=== PATIENT | male | born 1975 | race Caucasian/White ===

== ENCOUNTER 2018-10-11 09:20 | Emergency (ER) | payer MEDICAID ==
[~2018-10-11] VITALS: Ht 177.8 cm; Wt 86.2 kg
[2018-10-11 09:27] VITALS: BP 138/92
--- NOTE | 2018-10-11 09:28 | NUR ---
BIBA, C/O SEVERE BACK PAIN S/P WORKING AND HX OF LOW BACK INJURY. PT STATES 10/10 PAIN AND SPASM ON LOWER BACK PAIN. HOB UP, BED SIDE RAILS X 1, ON LOW BED POSITION, LOCKED. ER MD MADE AWARE OF PT STATUS.
--- NOTE | 2018-10-11 09:49 | NUR ---
AT BEDSIDE FOR PT EVALUATION
[2018-10-11] MEDS ORDERED: KETOROLAC 30 MG/ML VIAL IM ONE (09:50)
[2018-10-11] MEDS ORDERED: DIAZEPAM 5 MG TAB PO ONE (09:50)
[2018-10-11] MEDS ORDERED: oxyCODONE/APAP 5/325 MG 1 TAB TAB PO ONE (11:10)
--- NOTE | 2018-10-11 12:15 | NUR ---
Patient discharged with v/s stable. Written and verbal after care instructions given and explained. Patient alert, oriented and verbalized understanding of instructions. Ambulatory with steady gait. All questions addressed prior to discharge. ID band removed. Patient advised to follow up with PMD. Rx of VALIUM, NORCO, AND IBUPROFEN given. Patient educated on indication of medication including possible reaction and side effects. Opportunity to ask questions provided and answered.
[2018-10-11] MEDS ORDERED: MORPHINE SULFATE 4 MG/ML SYR IM ONE (13:05)
== END 2018-10-11 12:15 | disposition home or self-care (01) ==
LOC: MED 09:20
DX: S39.012A Strain of muscle, fascia and tendon of lower back, initial encounter (principal); X58.XXXA Exposure to other specified factors, initial encounter; Y93.89 Activity, other specified; Y92.89 Other specified places as the place of occurrence of the external cause; Y99.8 Other external cause status
CPT/HCPCS: 96372; 99283; J1885; J2270